=== PATIENT | female | born 1990 | race Hispanic/Latino ===

== ENCOUNTER 2017-08-14 17:16 | Emergency (ER) | payer MEDICAID | END 2017-08-14 18:10 | disposition home or self-care (01) | LOC: EEVIPCON 17:16 → EDH 17:16 | DX: O26.892 Other specified pregnancy related conditions, second trimester (principal); Z3A.24 24 weeks gestation of pregnancy ==

== ENCOUNTER 2019-08-19 02:54 | Emergency (ER) | payer MEDICAID, OTHER ==
[~2019-08-19 02:54] MED LIST: PREN-68 PO
== END 2019-08-19 03:38 ==
LOC: EDH 02:54
DX: F41.9 Anxiety disorder, unspecified (principal); F32.9 Major depressive disorder, single episode, unspecified

== ENCOUNTER 2019-08-19 16:49 | Emergency (ER) | payer SELFPAY ==
[2019-08-19] MEDS ORDERED: TETANUS/DIPHTHERIA TOXOID [ADULT] 0.5 ML VIAL IM ONE (18:11)
== END 2019-08-19 19:02 ==
LOC: EDH 16:49
DX: S71.102A Unspecified open wound, left thigh, initial encounter (principal); Z32.02 Encounter for pregnancy test, result negative; X58.XXXA Exposure to other specified factors, initial encounter; Y93.89 Activity, other specified; Y92.148 Other place in prison as the place of occurrence of the external cause; Y99.8 Other external cause status
CPT/HCPCS: 81025; 90471; 90714